=== PATIENT | male | born 1945 ===

== ENCOUNTER → 2017-07-23 | Outpatient (CLI) | payer OTHER ==
[2017-07-23 13:48] LABS: Appearance, Urine Clear (Clear); Bilirubin, Urine Neg (Neg); Blood, Urine Neg (Neg); Color, Urine Yellow (P-Yellow); Glucose Qualitative, Urine Neg (Neg); Ketones, Urine Neg (Neg); Leukocyte Esterase, Urine Neg (Neg); Nitrite, Urine Neg (Neg); Protein, Urine Neg (Neg); Specific Gravity, Urine 1.015 (1.003-1.022); Urobilinogen, Urine NORM (Normal)
[2017-07-23 14:09] LABS: Creatinine, Urine Random 93.6 mg/dL (27.00-270.00)
== END | disposition home or self-care (01) ==
LOC: OLS 13:00
PROVIDERS: Internal Medicine
DX: N18.3 Chronic kidney disease, stage 3 (moderate) (principal)
CPT/HCPCS: 81003; 82570; 84156

== ENCOUNTER 2019-06-18 10:20 | Day surgery (SDC) | payer OTHER ==
--- NOTE | 2019-06-18 11:51 | NUR ---
Ambulatory in Day Surgery[facility] Paws warming gown applied. History, Chart, Medications and Allergies reviewed before start of procedure.Patient confirms NPO status and agrees with scheduled surgery. PT HAS LIGHT EXPIRATORY WHEEZES IN ALL [place]. ANESTHESIA AWARE.
--- NOTE | 2019-06-18 12:56 | NUR ---
06/18/19 1256 Cadence Goddard [facility] [place] CASE WITH DR. WRIGHT. SEE ANETHESIA RECORD FOR CARE
== END 2019-06-18 13:55 | disposition home or self-care (01) ==
LOC: ORSCMMR 10:20 → ORD 12:30 → ORSCMMR 13:55
PROVIDERS: Internal Medicine Gastroenterology
PROC: 0DBM8ZX Excision of Descending Colon, Via Natural or Artificial Opening Endoscopic, Diagnostic (ICD-10-PCS; principal; 2019-06-18 12:30)
PROC: 0DBH8ZX Excision of Cecum, Via Natural or Artificial Opening Endoscopic, Diagnostic (ICD-10-PCS; principal; 2019-06-18 12:30)
PROC: 0DBN8ZX Excision of Sigmoid Colon, Via Natural or Artificial Opening Endoscopic, Diagnostic (ICD-10-PCS; principal; 2019-06-18 12:30)
DX: R19.5 Other fecal abnormalities (principal); C18.0 Malignant neoplasm of cecum; D12.5 Benign neoplasm of sigmoid colon; K63.5 Polyp of colon; I10 Essential (primary) hypertension; J44.9 Chronic obstructive pulmonary disease, unspecified; E78.00 Pure hypercholesterolemia, unspecified; Z79.899 Other long term (current) drug therapy; Z79.82 Long term (current) use of aspirin; E66.01 Morbid (severe) obesity due to excess calories; Z68.42 Body mass index [BMI] 45.0-49.9, adult
CPT/HCPCS: 88305; J2704; J7120

== ENCOUNTER 2019-07-06 05:40 | Inpatient (IN) | payer OTHER ==
[~2019-07-06] VITALS: Ht 174 cm; Wt 150.2 kg
[~2019-07-06 05:40] MED LIST: ASPI81CH PO; Benicar Hct 201 EACH PO; IBUP800 PO; NYSTRITC TOP; POTA10T PO; PRAV20 PO; Vitamin D2000 UNIT PO
--- NOTE | 2019-07-06 07:36 | NUR ---
Ambulatory in Day Surgery History, Chart, Medications and Allergies reviewed before start of procedure.Patient confirms NPO status and agrees with scheduled surgery. Patient reports completing Chlorhexadine shower X2 prior to admission to hospital.Surgical site prepped with 2% Chlorhexidine cloth wipe.
--- NOTE | 2019-07-06 13:15 | NUR ---
PT ARRIVED TO ROOM ON OWN BED, FAMILY WITH PT, PT A/O X 4, PLEASANT/COOPERATIVE. POST OP/EPIDURAL VS STABLE AND COMMENCED. PT DENIES PAIN, DENIES N/V. EPIDURAL SITE C/D/I
--- NOTE | 2019-07-06 19:35 | NUR ---
shift summary: epidural vss and continuining q1. pt a/o x 4, pleasant/cooperative. pt denies pain, denies n/v. pt tolerating clear liquid diet. dermatomes show sensation to L2-3, some minor tingling/numbness in the LLE laterally. pt remains on 2l NC with continuous bioxx, SPO2 >90%. when pt falls asleep he begins snoring and SPo2 occasionally drops to 87-89%. family has visited pt this shift. Dr Mckinney rounded on pt. epdiural dressing c/d/i, taped in place
--- NOTE | 2019-07-07 03:21 | NUR ---
SHIFT SUMMARY POD 1 S/P LAP HEMICOLECTOMY. PT A/OX4 WITH VSS; SPO2 AT 93% ON 3L NC. ABD DRESSINGS C/D/I; ABD WHITNEY DRESSING C/D/I. PAIN CONTROLLED PER EMAR AND REPOSITIONING. EPIDURAL IN PLACE W/DRESSING C/D/I, INFUSING PRN. Q1 HR EPIDURAL CHECKS UNTIL 11AM TODAY; HAS FULL SENSATION T/O. POOR PO INTAKE, EDUCATION AND ENCOURAGEMENT PROVIDED. DENIES N/V. IS CURRENTLY RESTING IN BED WITH CALL LIGHT AND PAIN BUTTON IN REACH. WILL CONT TO MONITOR AND GIVE REPORT TO ONCOMING RN.
[2019-07-07 05:07] LABS: BASOPHILS ABSOLUTE AUTO 0.03 K/mm3 (0.00-0.23); BASOPHILS PERCENT AUTO 0 % (0-2); EOSINOPHILS ABSOLUTE AUTO 0.05 K/mm3 (0.00-0.68); EOSINOPHILS PERCENT AUTO 0 % (0-6); Hematocrit 44.6 % (37.0-53.0); Hemoglobin 14.7 g/dL (13.5-17.5); IMMATURE GRAN ABSOLUTE AUTO 0.12 K/mm3 (0.00-0.10); IMMATURE GRAN PERCENT AUTO 1 % (0-1); LYMPHOCYTES ABSOLUTE AUTO 1.66 K/mm3 (0.84-5.20); LYMPHOCYTES PERCENT AUTO 9 % (21-46); MONOCYTES ABSOLUTE AUTO 1.15 K/mm3 (0.16-1.47); MONOCYTES PERCENT AUTO 6 % (4-13); Mean Corpuscular HGB 30.6 pg (26.0-34.0); Mean Corpuscular Volume 93 fL (80-100); Mean Platelet Volume 9.3 fL (9.1-12.4); NEUTROPHILS ABSOLUTE AUTO 15.64 K/mm3 (1.96-9.15); NEUTROPHILS PERCENT AUTO 84 % (41-73); Platelet Count 194 K/mm3 (150-400); RDW Coefficient Variation 13.2 % (11.7-14.2); RDW Standard Deviation 45.1 fL (35.1-46.3); Red Blood Cell Count 4.81 M/mm3 (4.30-5.90); White Blood Cell Count 18.65 K/mm3 (4.00-11.30)
[2019-07-07 05:23] LABS: Bun/Creatinine Ratio 14.6 (12.0-20.0); Calcium, Blood 8.5 mg/dL (8.5-10.1); Creatinine, Blood 1.37 mg/dL (0.60-1.20); Potassium, Blood 3.9 mmol/L (3.5-5.5)
--- NOTE | 2019-07-07 17:46 | NUR ---
SHIFT SUMMARY PT A&OX4, VSS, POD1 R LAP HEMICOLECTOMY, WHITNEY WNL, DRESSINGS DRY/INTACT. PAIN MANAGED W/EPIDURAL; SENSATION T9-T12. AMANDA PO REG DIET. AMB FEW STEPS TO CHAIR/BED. BAKER PATENT & DRAINING YELLOW URINE, STAT LOCK ON, OFF FLOOR. WILL REPORT TO ONCOMING NOC RN.
--- NOTE | 2019-07-08 04:25 | NUR ---
SHIFT SUMMARY POD 2 LAP HEMICOLECTOMY, NO ACUTE CHANGES THIS SHIFT. ABD DRESSINGS C/D/I WITH WHITNEY DRESSING INTACT/DRY. EPIDURAL IN PLACE W/DRESSING C/D/I; HAS FULL SENSATION. REPORTS PAIN MANAGED WITH EPIDURAL USE. UP IN CHAIR AND AMBULATED TO BATHROOM WITH SBA/GB. TOLERATING PO INTAKE. BAKER IN PLACE DRAINING YELLOW URINE. IS CURRENTLY RESTING IN BED WITH CALL LIGHT AND PAIN BUTTON IN REACH. WILL CONT TO MONITOR AND GIVE REPORT TO ONCOMING RN.
--- NOTE | 2019-07-08 17:57 | NUR ---
SUMMARY PATIENT HAS NOT VOIDED SINCE BAKER REMOVES AND DENIES FEELING LIKE HE NEEDS TO VOID. BLADDER SCAN COMPLETED AT THIS TIME AND SHOWS 197 ML. PATIENT NEEDS ENCOURAGEMENT TO BE OOB. REPORTS LOWER ABD PAIN 3-4/10 AND SOME INDIGESTION. AMANDA PO FOOD WITHOUT NAUSEA. ABD BINDER IN PLACE. PATIENT INSISTENT AT TIMES THAT HE WANTS TO BE DISCHARGED BUT IS AGREEABLE TO STAY OVERNIGHT UNTIL SEEN BY SURGEON TOMORROW
--- NOTE | 2019-07-08 18:13 | NUR ---
VOIDED 250 ML BENJI URINE
--- NOTE | 2019-07-09 04:03 | NUR ---
SHIFT SUMMARY POD 3 LAP COLECTOMY AAOX4, VSS. PICCO DRESSEING COMPRESSED, GREEN LIGHT ON. REPORTS MINIMAL PAIN, MEDICATED WITH 1 NORCO X3 DURING SHIFT. DENIES PASSING GAS. PT HAS BEEN VOIDING. PT WALKING TO RESTROOM IND. TOLERATING PO WELL. REPORTS PAIN ON LEFT HEEL, FOOT IS ELEVATED ON PILLOW. PLAN TO CONTINUE ENCOURAGING OOB. AWAITING RETURN OF BOWEL FUNCTION.
[2019-07-09] MEDS ORDERED: HYDR1TAB94 PO (09:36)
--- NOTE | 2019-07-09 11:55 | NUR ---
PATIENT D/C'D HOME WITH FRIEND AT THIS TIME. TOLERATING DIET. MINIMAL PAIN CONTROLLED WITH PO PAIN MED. UP IN ROOM, MENG AD MILA, STEADY ON FEET. ABD INCISION SITES CLEAR. WHITNEY DRAIN INTACT. NO ACUTE CHANGES OR C/O.
== END 2019-07-09 12:40 | disposition home or self-care (01) | DRG 331 ==
LOC: SURS 05:40 → PRE IP 07:30 → SURS 12:42
PROVIDERS: ADMIT Surgery
PROC: 0DTF0ZZ Resection of Right Large Intestine, Open Approach (ICD-10-PCS; principal; 2019-07-06 07:30)
DX: C18.0 Malignant neoplasm of cecum (principal)
CPT/HCPCS: 36415; 80048; 85025; 86850; 86900; 86901; 94762; A9270-GY; J1100; J1650; J2250; J2405; J2543; J2704; J2710; J3010; J7120